=== PATIENT | female | born 1985 | race African-American/Black ===

== ENCOUNTER 2019-07-01 12:35 | Emergency (ER) | payer SELFPAY ==
[2019-07-01] MEDS ORDERED: Acetaminophen/HYDROcodone 325-10 MG Tab PO ONE (12:59)
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
[2019-07-01] MEDS: traMADol 50 MG Tab PO ONE (13:33)
[2019-07-01] MEDS: Baclofen 10 MG Tab PO ONE (13:34)
== END 2019-07-01 15:20 | disposition home health service (06) ==
LOC: FB.ED 12:35
DX: S42.291A Other displaced fracture of upper end of right humerus, initial encounter for closed fracture (principal); S46.811A Strain of other muscles, fascia and tendons at shoulder and upper arm level, right arm, initial encounter; S80.02XA Contusion of left knee, initial encounter; Z88.6 Allergy status to analgesic agent; V89.2XXA Person injured in unspecified motor-vehicle accident, traffic, initial encounter
CPT/HCPCS: 72125; 73200-RT; 73562-LT; 99284-25; A9270-GY